=== PATIENT | male | born 1975 | race Native Hawaiian/Other Pacific Islander ===

== ENCOUNTER 2019-02-20 14:10 | Emergency (ER) | payer OTHER ==
[~2019-02-20] VITALS: Ht 177.8 cm; Wt 77.1 kg
[2019-02-20 16:35] VITALS: BP 130/81; TEMP 99.1
== END 2019-02-20 16:40 | disposition home or self-care (01) ==
LOC: ED 14:10
DX: T63.301A Toxic effect of unspecified spider venom, accidental (unintentional), initial encounter (principal); L03.221 Cellulitis of neck
CPT/HCPCS: 96372; 99282; 99283; J1885